=== PATIENT | male | born 1985 | race African-American/Black ===

== ENCOUNTER 2016-10-06 17:45 | Emergency (ER) | payer SELFPAY ==
[~2016-10-06] VITALS: Ht 182.9 cm; Wt 81.6 kg
[2016-10-06 18:19] VITALS: BP 145/88
--- NOTE | 2016-10-06 18:42 | Emergency Room Report ---
History of Present Illness General Chief Complaint: Altered Level of Consciousness Source: Patient, EMS Present Illness HPI 31 YOM BIBEMS in [employer] custody for outstanding warrant/felony unspecified. Bystanders stated patient was "rolling around in street." [employer] came by, found that he was NOT in street. Ran name, outstanding warrant. Patient denies PMHx, "may have" smoked weed earlier. Denies ETOH. Has no complaints. Doesnt want to talk, provide HPI currently. Wants to "get on with this process." Allergies: Coded Allergies: No Known Allergies (Unverified , 10/06/16) Patient History Past Medical History: none Past Surgical History: none Pertinent Family History: none Social History: Reports: smoking Immunizations: UTD Nursing Documentation-PMH Past Medical History: No History, Except For Review of Systems All Other Systems: negative except mentioned in HPI Physical Exam Vital Signs Date Time Temp Pulse Resp B/P Pulse Ox O2 Delivery O2 Flow Rate FiO2 10/06/16 17:39 78 14 145/88 98 Room Air Sp02 EP Interpretation: reviewed, normal General Appearance: normal inspection, well appearing, no apparent distress, alert, GCS 15, non-toxic Head: normocephalic, atraumatic Eyes: bilateral eye EOMI, bilateral eye PERRL ENT: normal ENT inspection, hearing grossly normal, normal voice Neck: normal inspection, full range of motion, supple, no bony tend Respiratory: normal inspection, lungs clear, normal breath sounds, no respiratory distress, no retraction, no wheezing Cardiovascular #1: regular rate, rhythm, no edema Gastrointestinal: normal inspection, normal bowel sounds, non tender, soft, no guarding, no hernia Genitourinary: no CVA tenderness Musculoskeletal: normal inspection, back normal, normal range of motion, Shanae' s Sign negative Neurologic: normal inspection, alert, oriented x3, responsive, paper machine backtender III-XII nml as tested, motor strength/tone normal, speech normal Psychiatric: normal inspection, judgement/insight normal, mood/affect normal Skin: normal inspection Lymphatic: normal inspection Medical Decision Making Diagnostic Impression: Primary Impression: Medical clearance for incarceration ER Course 31 YOM cleared for [employer] booking Asymptomatic No complaints VSS. Afebrile. No PMHx Medically cleared Last Vital Signs Date Time Temp Pulse Resp B/P Pulse Ox O2 Delivery O2 Flow Rate FiO2 10/06/16 18:19 78 14 145/88 98 Room Air Status: improved Disposition: D/C TO LAW ENFORCEMENT IN CUST Condition: Improved Departure Forms: [facility] Clearance Additional Instructions: Medically cleared for booking with ERNESTO LANDERS M.D. Oct 06, 2016 18:41
== END 2016-10-06 18:19 ==
LOC: EDBD 17:45 → EMR 18:19
DX: T88.53XA Unintended awareness under general anesthesia during procedure, initial encounter (principal)
CPT/HCPCS: 99283

== ENCOUNTER 2017-08-09 11:54 | Emergency (ER) | payer SELFPAY ==
[~2017-08-09] VITALS: Ht 182.9 cm; Wt 108.9 kg
[2017-08-09 11:52] VITALS: BP 131/81
[2017-08-09] MEDS ORDERED: Sodium Chloride 500ML 500 ML IV ONE (12:02)
[2017-08-09] MEDS ORDERED: LORazepam Inj 2mg/ml 1ml IM ONE (12:15)
[2017-08-09] MEDS ORDERED: Haloperidol 5mg/ml Inj IM ONE (12:15)
[2017-08-09 13:04] LABS: BASOPHILS % (AUTO) 1.3 % (0.0-2.0); EOSINOPHILS % (AUTO) 0.4 % (0.0-3.0); LYMPHOCYTES % (AUTO) 19.4 % (20.0-45.0); MEAN CORPUSCULAR VOLUME 88 FL (80-99); MEAN PLATELET VOLUME 6.3 FL (6.5-10.1); MONOCYTES % (AUTO) 7.9 % (1.0-10.0); PLATELET COUNT 234 K/UL (150-450); RED BLOOD COUNT 4.18 M/UL (4.70-6.10); WHITE BLOOD COUNT 7.8 K/UL (4.8-10.8)
[2017-08-09 13:13] LABS: ANION GAP 10 mmol/L (5-15); CALCIUM 9.1 MG/DL (8.5-10.1); CARBON DIOXIDE 25 MMOL/L (21-32); CHLORIDE 108 MMOL/L (98-107); CREATININE 0.8 MG/DL (0.55-1.30); GLOMERULAR FILTRATION RATE > 60 mL/min (>60); POTASSIUM 3.6 MMOL/L (3.5-5.1); SODIUM 143 MMOL/L (136-145)
[2017-08-09 13:17] LABS: ALANINE AMINOTRANSFERASE 49 U/L (12-78); ALBUMIN/GLOBULIN RATIO 0.9 (1.0-2.7); ALCOHOL < 3 mg/dL; ASPARTATE AMINO TRANSFERASE 43 U/L (15-37); TOTAL PROTEIN 7.8 G/DL (6.4-8.2)
[2017-08-09 13:19] LABS: ACETAMINOPHEN < 2 MCG/ML (10-30)
[2017-08-09 13:45] VITALS: BP 124/76
--- NOTE | 2017-08-09 14:56 | Emergency Room Report ---
History of Present Illness General Chief Complaint: Altered Mental Status Source: EMS (MELINDA ANDREWS M.D.) Present Illness HPI 33-year-old male presents ED for evaluation. Brought in by EMS altered and agitated. 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 Upon arrival patient is agitated, anxious. Says his name is Mart. Unable in the provide any additional history at this time. No signs of trauma. No other aggravating or leading factors. No other associated symptoms (MELINDA ANDREWS M.D.) Allergies: Coded Allergies: No Known Allergies (Unverified , 10/06/16) UNABLE TO ASSESS (Unverified , 08/09/17) Patient History Past Medical History: none Past Surgical History: none Pertinent Family History: none Social History: Reports: drug use, Denies: smoking, alcohol use Immunizations: UTD Reviewed Nursing Documentation: PMH: Agreed, PSxH: Agreed (MELINDA ANDREWS M.D.) Nursing Documentation-PMH Past Medical History Deferred: Pt Cognitively Impaired Past Medical History: Deferred (MELINDA ANDREWS M.D.) Review of Systems All Other Systems: negative except mentioned in HPI (MELINDA ANDREWS M.D.) Physical Exam Vital Signs Date Time Temp Pulse Resp B/P (MAP) Pulse Ox O2 Delivery O2 Flow Rate FiO2 08/09/17 11:42 98.4 114 20 168/86 98 Room Air Sp02 EP Interpretation: reviewed, normal General Appearance: other - agitated Head: normocephalic Eyes: bilateral eye normal inspection, bilateral eye PERRL ENT: normal ENT inspection Neck: normal inspection Respiratory: chest non-tender, lungs clear, normal breath sounds, speaking full sentences Cardiovascular #1: regular rate, rhythm, no edema Gastrointestinal: normal inspection Rectal: deferred Genitourinary: no CVA tenderness Musculoskeletal: normal inspection Neurologic: other - agitated Psychiatric: other - agitated Skin: normal inspection Lymphatic: normal inspection (MELINDA ANDREWS M.D.) Medical Decision Making Diagnostic Impression: Primary Impression: Altered mental status Qualified Codes: R41.82 - Altered mental status, unspecified Additional Impressions: Substance abuse Schizophrenia Qualified Codes: F20.9 - Schizophrenia, unspecified Labs Test 08/09/17 12:35 White Blood Count 7.8 K/UL (4.8-10.8) Red Blood Count 4.18 M/UL (4.70-6.10) Hemoglobin 12.1 G/DL (14.2-18.0) Hematocrit 36.8 % (42.0-52.0) Mean Corpuscular Volume 88 FL (80-99) Mean Corpuscular Hemoglobin 29.0 PG (27.0-31.0) Mean Corpuscular Hemoglobin Concent 33.0 G/DL (32.0-36.0) Red Cell Distribution Width 13.0 % (11.6-14.8) Platelet Count 234 K/UL (150-450) Mean Platelet Volume 6.3 FL (6.5-10.1) Neutrophils (%) (Auto) 71.0 % (45.0-75.0) Lymphocytes (%) (Auto) 19.4 % (20.0-45.0) Monocytes (%) (Auto) 7.9 % (1.0-10.0) Eosinophils (%) (Auto) 0.4 % (0.0-3.0) Basophils (%) (Auto) 1.3 % (0.0-2.0) Sodium Level 143 MMOL/L (136-145) Potassium Level 3.6 MMOL/L (3.5-5.1) Chloride Level 108 MMOL/L (98-107) Carbon Dioxide Level 25 MMOL/L (21-32) Anion Gap 10 mmol/L (5-15) Blood Urea Nitrogen 12 mg/dL (7-18) Creatinine 0.8 MG/DL (0.55-1.30) Estimat Glomerular Filtration Rate > 60 mL/min (>60) Glucose Level 111 MG/DL (74-106) Calcium Level 9.1 MG/DL (8.5-10.1) Total Bilirubin 0.6 MG/DL (0.2-1.0) Aspartate Amino Transf (AST/SGOT) 43 U/L (15-37) Alanine Aminotransferase (ALT/SGPT) 49 U/L (12-78) Alkaline Phosphatase 57 U/L (46-116) Total Protein 7.8 G/DL (6.4-8.2) Albumin 3.7 G/DL (3.4-5.0) Globulin 4.1 g/dL Albumin/Globulin Ratio 0.9 (1.0-2.7) Salicylates Level 2.3 ug/mL (2.8-20) Urine Opiates Screen Positive (NEGATIVE) Acetaminophen Level < 2 MCG/ML (10-30) Urine Barbiturates Screen Negative (NEGATIVE) Phencyclidine (PCP) Screen Negative (NEGATIVE) Urine Amphetamines Screen Positive (NEGATIVE) Urine Benzodiazepines Screen Negative (NEGATIVE) Urine Cocaine Screen Positive (NEGATIVE) Urine Marijuana (THC) Screen Positive (NEGATIVE) Serum Alcohol < 3 mg/dL (MELINDA ANDREWS M.D.) ER Course Patient now awake alert, sober, not acute distress, ambulatory, states that he wants to eat. States that he is homeless but has access to shelters. No SI HI no auditory hallucinations. Stable to go home We attempted to discharge patient, he starting to walk around with pants down, not making sense, screaming, agitated, not conversing appropriately, patient will now stay, psych consult in AM Signed out patient to Dr. Sol 32-year-old male, agitated, substance abuse, received sedation by a previous doctor When I attempted to discharge patient more than 10 hours after his stay, still became extremely agitated, physically forceful with staff, walking around with pants down, not getting clear history -Pending psych eval, Dr Kristine marshall (Korey Archibald M.D.) ER Course Received signout from Dr Archibald at 630am On reassessment, patient has disorganized thoughts, is not answering questions appropriately, is hearing voices, is concerned about inanimate objects in the room "bothering me." Review of labs shows + for multiple substances Patient was sedated many hours ago for agitation on initial arrival he is calm and cooperative now however appears schizophrenic Given dose of zyprexa by me in AM Patient is medically cleared but warrants further psychiatric evaluation We will try to find placement at Psych hospital (ERNESTO SOL M.D.) ER Course The patient was noted to have the continued alteration of his mental status. The patient was noted to have some improvement. He was able to give his name. A drug screen was noted positive for multiple different substances. The patient will likely require reevaluation when sober.The patient was endorsed to Dr. Archibald (Carlito Souza) Last Vital Signs Date Time Temp Pulse Resp B/P (MAP) Pulse Ox O2 Delivery O2 Flow Rate FiO2 08/09/17 11:52 98.4 20 131/81 98 Room Air 08/09/17 11:42 114 Status: improved (MELINDA ANDREWS M.D.) Status: improved (ERNESTO SOL M.D.) Disposition: XFER TO PSYCH HOSP/UNIT Condition: Serious Referrals: NOT CHOSEN IPA/,REFERRING (PCP) MELINDA ANDREWS M.D. Aug 09, 2017 14:56 Korey Archibald M.D. Aug 10, 2017 04:17 ERNESTO SOL M.D. Aug 10, 2017 06:56 Carlito Souza Aug 12, 2017 14:15
[2017-08-09 15:57] VITALS: BP 133/73
[2017-08-09 17:57] VITALS: BP 125/67
[2017-08-09 19:27] VITALS: BP 143/95
[2017-08-09 21:32] VITALS: BP 126/68
[2017-08-10 00:30] VITALS: BP 133/68
[2017-08-10 03:46] VITALS: BP 125/77
[2017-08-10 06:08] VITALS: BP 131/83
[2017-08-10 08:42] VITALS: BP 129/76
--- NOTE | 2017-08-10 09:36 | Emergency Room Report ---
History of Present Illness General Chief Complaint: Altered Mental Status Source: EMS Present Illness Allergies: Coded Allergies: No Known Allergies (Unverified , 10/06/16) UNABLE TO ASSESS (Unverified , 08/09/17) Nursing Documentation-[facility] Past Medical History Deferred: Pt Cognitively Impaired Past Medical History: Deferred Physical Exam Vital Signs Date Time Temp Pulse Resp B/P (MAP) Pulse Ox O2 Delivery O2 Flow Rate FiO2 08/09/17 11:42 98.4 114 20 168/86 98 Room Air Sp02 EP Interpretation: reviewed, normal General Appearance: normal inspection, well appearing, no apparent distress, alert Head: atraumatic ENT: normal ENT inspection, hearing grossly normal, normal voice Neck: normal inspection, full range of motion, supple, no bony tend Respiratory: normal inspection, lungs clear, normal breath sounds, no respiratory distress, no retraction, no wheezing Cardiovascular #1: regular rate, rhythm, no edema Gastrointestinal: normal inspection, normal bowel sounds, non tender, soft, no guarding, no hernia Genitourinary: no CVA tenderness Musculoskeletal: normal inspection, back normal, normal range of motion, Shanae' s Sign negative Neurologic: normal inspection, alert, responsive, speech normal Psychiatric: normal inspection, judgement/insight normal, mood/affect normal Skin: normal inspection, normal color, no rash Medical Decision Making Diagnostic Impression: Primary Impression: Altered mental status Additional Impressions: Substance abuse Schizophrenia Last Vital Signs Date Time Temp Pulse Resp B/P (MAP) Pulse Ox O2 Delivery O2 Flow Rate FiO2 08/10/17 06:08 81 16 131/83 98 Room Air 08/09/17 19:27 98.0 Disposition: PSYCH HOSP/UNIT Condition: Serious Referrals: NOT CHOSEN IPA/,REFERRING (PCP) Patient Instructions: Substance Use Disorder ERNESTO SOL M.D. Aug 10, 2017 09:36
[2017-08-10 13:35] VITALS: BP 129/76
== END 2017-08-10 12:30 | disposition home or self-care (01) ==
LOC: EDBD 11:54 → EMR 14:00 → EDUNIT# 14:00 → EMR 08-10 12:30
DX: R41.82 Altered mental status, unspecified (principal); F19.10 Other psychoactive substance abuse, uncomplicated; F20.9 Schizophrenia, unspecified
CPT/HCPCS: 36415; 80053; 80307; 85025; 96360; 96372; 99285; G0480; J1630; J7040; 80329